=== PATIENT | female | born 1990 | race Caucasian/White ===

== ENCOUNTER 2016-12-07 00:49 | Emergency (ER) | payer OTHER ==
[~2016-12-07] VITALS: Ht 160 cm; Wt 61.4 kg
[2016-12-07 00:54] VITALS: Ht 160 cm; Wt 61.4 kg
[2016-12-07] MEDS ORDERED: DIPHTH/TET/ACEL PERTUSS (ADULT) 0.5 ML VIAL IM* ONE (01:00)
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
== END 2016-12-07 01:49 | disposition home or self-care (01) ==
LOC: E/R 00:49
DX: S61.511A Laceration without foreign body of right wrist, initial encounter (principal); W50.4XXA Accidental scratch by another person, initial encounter; Y92.238 Other place in hospital as the place of occurrence of the external cause; Z23 Encounter for immunization
CPT/HCPCS: 90471; 90715